=== PATIENT | male | born 1985 | race African-American/Black ===

== ENCOUNTER 2024-01-27 17:37 | Emergency (ER) | payer OTHER ==
[~2024-01-27] VITALS: Ht 190.5 cm; Wt 129.3 kg
[2024-01-27 18:39] VITALS: PULSE 67; RESP 15; TEMP 98.3
[2024-01-27] MEDS: IBUPROFEN 400 MG TAB PO STA (19:15)
[2024-01-27] MEDS ORDERED: NAPROSYN500 MG PO (21:01)
[2024-01-27 21:11] VITALS: BP 160/84; PULSE 54; RESP 16; TEMP 98.5; O2SAT 100
== END 2024-01-27 21:10 | disposition home or self-care (01) ==
LOC: ER 17:42
DX: S83.8X2A Sprain of other specified parts of left knee, initial encounter (principal); X50.1XXA Overexertion from prolonged static or awkward postures, initial encounter; Y93.64 Activity, baseball; Y92.89 Other specified places as the place of occurrence of the external cause; J45.909 Unspecified asthma, uncomplicated
CPT/HCPCS: 99283